=== PATIENT | male | born 1965 | race Caucasian/White ===

== ENCOUNTER 2017-05-19 06:20 | Day surgery (SDC) | payer OTHER ==
[~2017-05-19] VITALS: Ht 188 cm; Wt 115.7 kg
[2017-05-19] MEDS ORDERED: fentaNYL 0.05 MG/ML VIAL ONE (07:31)
[2017-05-19] MEDS ORDERED: LIDOCAINE 2% 100 MG/5 ML UJET TP ONE (07:31)
[2017-05-19] MEDS ORDERED: ELVI1TAB2 PO (08:13)
[2017-05-19] MEDS ORDERED: VITD400 PO (08:13)
[2017-05-19] MEDS ORDERED: ASCO500T45 PO (08:13)
[2017-05-19] MEDS ORDERED: ATOR40TA PO (08:13)
[2017-05-19] MEDS ORDERED: CETI-32 PO (08:13)
[2017-05-19] MEDS ORDERED: DOXA2TAB1 PO (08:13)
[2017-05-19] MEDS ORDERED: CYAN25006 PO (08:13)
[2017-05-19] MEDS ORDERED: CYCL10TA13 PO (08:13)
== END 2017-05-19 09:38 | disposition home or self-care (01) ==
LOC: MDS 06:20 → MMU 06:29 → MDS 09:38
PROVIDERS: ATTEND Internal Medicine Gastroenterology
DX: Z12.11 Encounter for screening for malignant neoplasm of colon (principal); K57.30 Diverticulosis of large intestine without perforation or abscess without bleeding; E66.9 Obesity, unspecified; Z72.89 Other problems related to lifestyle; Z98.890 Other specified postprocedural states; Z79.899 Other long term (current) drug therapy; Z68.33 Body mass index [BMI] 33.0-33.9, adult
CPT/HCPCS: J3010